=== PATIENT | male | born 1965 | race Caucasian/White ===

== ENCOUNTER 2016-11-13 10:54 | Day surgery (SDC) | payer BC ==
[2016-11-10 09:02] VITALS: BMI 23.7
[~2016-11-13 10:54] MED LIST: LACTATED RINGERS 1,000 ML IV SCH
[2016-11-13] MEDS ORDERED: LIDOCAINE 1% 20 ML VIAL (10MG/ML) FOR IV START INTRADERMA ONE ×2 (11:21→11:23)
[2016-11-13 11:46] VITALS: RESP 16; TEMP 97.4
[2016-11-13] MEDS ORDERED: PROPOFOL 10 MG/ML 20 ML VIAL IV ONE (13:09)
[2016-11-13] MEDS ORDERED: fentaNYL (PF) 50 MCG/ML 2 ML AMP ONE (13:09)
[2016-11-13] MEDS ORDERED: LIDOCAINE 1% INJ 10MG/ML (20 ML MDV) ONE (13:09)
--- NOTE | 2016-11-13 13:44 | P.PCN ---
Date of Procedure: 11/13/16 Procedure(s) Performed: Procedure: Colonoscopy and polypectomy. Preoperative diagnosis: Screening for neoplasia. Postoperative diagnosis: 1. Small sigmoid polyp snared but no large polyps or cancer. 2. Diverticulosis with no evidence of acute diverticulitis or strictures. 3. Low-grade internal hemorrhoids with no bleeding at the time of this exam. Preparation: HalfLytely prep. Sedation: Was provided by anesthesia. Brief clinical history: The patient is a 51-year-old male who is referred for this evaluation for screening for neoplasia age being his risk factor. He has no abdominal complaints or anemia. He mentioned occasional bleeding. No family history of colon cancer. This would be his first colonoscopy. Procedure: With the patient on his left lateral decubitus position and after informed consent and adequate sedation, the pain area was inspected and it did not show any fissures or fistulas. There were no masses felt on digital rectal examination. The Olympus CFQ 160L video colonoscope was then inserted in the rectum in the usual fashion and advanced to the cecum. There were several diverticular orifices seen scattered in the sigmoid and few on the right side and cecum with no evidence of acute diverticulitis or strictures. The mucosa appeared healthy. There was a benign small polyp noted in the sigmoid which I snared and retrieved by suction but there were no large polyps or cancer. I retroflexed the endoscope in the rectum before the endoscope was withdrawn. Low -grade internal hemorrhoids were noted but there was no evidence of bleeding. The patient tolerated the procedure well. Plan: The patient was reassured. Discussed dietary measures and local care for hemorrhoids. He will follow-up with you as planned and I recommended repeat exam in 5 years.
[2016-11-13 14:15] VITALS: PULSE 75
[2016-11-13 14:20] VITALS: BP 147/106
== END 2016-11-13 14:35 | disposition home or self-care (01) ==
LOC: ORWHC2ENDO 10:54
DX: Z12.11 Encounter for screening for malignant neoplasm of colon (principal); D12.5 Benign neoplasm of sigmoid colon; K57.30 Diverticulosis of large intestine without perforation or abscess without bleeding; K64.8 Other hemorrhoids; I10 Essential (primary) hypertension; Z87.891 Personal history of nicotine dependence; G89.29 Other chronic pain; M54.2 Cervicalgia; Z79.891 Long term (current) use of opiate analgesic; Z79.899 Other long term (current) drug therapy; Z91.040 Latex allergy status
CPT/HCPCS: 88305; 45385; J2001; J3010; J2704